=== PATIENT | male | born 1965 | race Caucasian/White ===

== ENCOUNTER → 2017-05-03 | Outpatient (CLI) | payer BC | END | disposition home or self-care (01) | LOC: GMAJ 10:49 | PROVIDERS: ATTEND Family Medicine | DX: Z12.5 Encounter for screening for malignant neoplasm of prostate (principal) ==

== ENCOUNTER → 2018-12-01 | Outpatient (CLI) | payer BC | LOC: GMAJ 10:27 | PROVIDERS: ATTEND Family Medicine | DX: E29.1 Testicular hypofunction (principal); I10 Essential (primary) hypertension; E78.2 Mixed hyperlipidemia ==

== ENCOUNTER → 2019-06-08 | Outpatient (CLI) | payer BC | LOC: GMAJ 10:14 | PROVIDERS: ATTEND Family Medicine | DX: E29.1 Testicular hypofunction (principal); I10 Essential (primary) hypertension ==

== ENCOUNTER → 2020-01-08 | Outpatient (CLI) | payer BC | LOC: GMAJ 10:43 | PROVIDERS: ATTEND Family Medicine | DX: Z12.5 Encounter for screening for malignant neoplasm of prostate (principal) ==

== ENCOUNTER → 2020-05-13 | Outpatient (CLI) | payer BC | LOC: GMAJ 10:56 | PROVIDERS: ATTEND Family Medicine | DX: R53.83 Other fatigue (principal); E78.2 Mixed hyperlipidemia; I10 Essential (primary) hypertension ==